=== PATIENT | female | born 1970 | race Caucasian/White ===

== ENCOUNTER 2019-01-31 08:01 | Emergency (ER) | payer MEDICARE, MEDICAID ==
[~2019-01-31] VITALS: Ht 172.7 cm; Wt 74.4 kg
[~2019-01-31 08:01] MED LIST: HYDROXYZINE HCL25 M1 PO; OLANZAPINE10 MG PO; PROZAC10 MG PO; REMERON15 MG PO; XANAX 0.25 MG0.25 MG PO
[2019-01-31] MEDS ORDERED: PREDNISONE 20 M20 M1 PO (08:13)
[2019-01-31] MEDS ORDERED: PEPCID40 MG PO (08:13)
[2019-01-31] MEDS ORDERED: ZYRTEC 10 MG TA10 MG PO (08:13)
[2019-01-31 08:16] VITALS: BP 128/74
== END 2019-01-31 08:16 | disposition home or self-care (01) ==
LOC: M.ERS 08:01
DX: L50.9 Urticaria, unspecified (principal); F32.9 Major depressive disorder, single episode, unspecified; F20.0 Paranoid schizophrenia; F41.9 Anxiety disorder, unspecified; F17.210 Nicotine dependence, cigarettes, uncomplicated